=== PATIENT | female | born 1935 | race Caucasian/White ===

== ENCOUNTER → 2019-10-28 13:43 | Outpatient (BNVA) | payer SELFPAY | PROVIDERS: Family Provider Family Medicine; PCP Family Medicine | DX: R01.1 Cardiac murmur, unspecified (principal) | CPT/HCPCS: 86880 ==

== ENCOUNTER → 2020-10-05 15:01 | Outpatient (BNVA) | payer SELFPAY | PROVIDERS: Family Provider Family Medicine; PCP Family Medicine | DX: R01.1 Cardiac murmur, unspecified (principal) | CPT/HCPCS: 86880 ==

== ENCOUNTER → 2022-01-30 14:05 | Outpatient (BNVA) | payer SELFPAY | PROVIDERS: Family Provider Family Medicine; PCP Family Medicine; Visit Provider Podiatrist Foot & Ankle Surgery | DX: M25.571 Pain in right ankle and joints of right foot (principal) | CPT/HCPCS: 81003 ==

== ENCOUNTER → 2022-02-06 12:14 | Outpatient (BNVA) | payer SELFPAY | PROVIDERS: Family Provider Family Medicine; PCP Family Medicine; Visit Provider Podiatrist Foot & Ankle Surgery | DX: M25.571 Pain in right ankle and joints of right foot (principal) | CPT/HCPCS: 73610 ==

== ENCOUNTER → 2022-07-26 19:54 | Outpatient (BNVA) | payer SELFPAY ==
--- NOTE | 2022-08-21 11:05 | PM.GBL ---
Social History new Tobacco/Nicotine/E-cig Use: Tobacco/Nicotine/E-cig Use Status: current user Tobacco/Nicotine/E-cig Type: cigarettes Number of cigarettes per day: >20 Pack years: 64 Quit status (tobacco): has tried quitting (several times) Smoking risk assessment performed?: Yes Tobacco counseling given: counseling >3 minutes Alcohol Use: Alcohol Use: current alcohol use Alcohol Use Frequency: daily Alcohol Type: beer and wine Substance Use: Substance/Drug Use: former substance/drug use Substance/Drug Use Type: IV drugs General Social History: Household members: spouse Marital status: service: Yes status: Retired branch: [employer] Known or Potential Exposure: None Current occupational status: retired Current gender identity: Male
== END ==
PROVIDERS: Family Provider Family Medicine; PCP Family Medicine
DX: Z12.4 Encounter for screening for malignant neoplasm of cervix (principal)
CPT/HCPCS: 87624

== ENCOUNTER → 2022-08-29 09:20 | Day surgery (SDC) | payer MEDICAID, SELFPAY | PROVIDERS: Family Provider Family Medicine; PCP Family Medicine; Visit Provider Family Medicine | DX: Z53.9 Procedure and treatment not carried out, unspecified reason (principal) | CPT/HCPCS: 87506 ==

== ENCOUNTER → 2022-10-24 13:00 | Outpatient (BNVA) | payer SELFPAY | PROVIDERS: Family Provider Family Medicine; PCP Family Medicine | DX: Z01.89 Encounter for other specified special examinations (principal) | CPT/HCPCS: 87081; 87491; 87493; 87591; 87661 ==

== ENCOUNTER → 2022-10-25 07:00 | Outpatient (BNVA) | payer SELFPAY | PROVIDERS: Family Provider Family Medicine; PCP Family Medicine | DX: Z01.89 Encounter for other specified special examinations (principal) | CPT/HCPCS: 87506 ==

== ENCOUNTER → 2022-10-29 06:00 | Outpatient (BNVA) | payer SELFPAY | PROVIDERS: Family Provider Family Medicine; PCP Family Medicine | DX: Z01.89 Encounter for other specified special examinations (principal) | CPT/HCPCS: 87506 ==

== ENCOUNTER → 2023-09-17 15:47 | Outpatient (BNVA) | payer OTHER, SELFPAY | PROVIDERS: Family Provider Family Medicine; PCP Family Medicine; Visit Provider Podiatrist Foot & Ankle Surgery | DX: M79.672 Pain in left foot (principal) | CPT/HCPCS: 73630 ==

== ENCOUNTER → 2024-01-30 18:40 | Outpatient (BNVA) | payer BC, SELFPAY | PROVIDERS: Family Provider Family Medicine; PCP Family Medicine | DX: Z01.89 Encounter for other specified special examinations (principal) | CPT/HCPCS: 87070 ==